=== PATIENT | female | born 1940 | race Caucasian/White ===

== ENCOUNTER 2016-10-13 09:35 | Outpatient (CLI) | payer MEDICARE, OTHER ==
[2016-10-13] MEDS ORDERED: BUFFERED LIDOCAINE 10 ML SYRINGE IU ONE (11:40)
== END 2016-10-13 09:36 | disposition home or self-care (01) ==
DX: E04.2 Nontoxic multinodular goiter (principal)

== ENCOUNTER 2017-01-24 13:16 | Outpatient (CLI) | payer MEDICARE, OTHER ==
[2017-01-24] MEDS ORDERED: ALBUTEROL NEB 2.5 MG/3 ML INH ONE (13:46)
== END 2017-01-24 13:17 | disposition home or self-care (01) ==
DX: R06.00 Dyspnea, unspecified (principal)
CPT/HCPCS: 94060; 94729; J7613

== ENCOUNTER 2017-01-26 09:35 | Outpatient (CLI) | payer MEDICARE, OTHER | END 2017-01-26 09:36 | disposition home or self-care (01) | DX: Z12.31 Encounter for screening mammogram for malignant neoplasm of breast (principal) ==

== ENCOUNTER 2017-01-26 15:51 | Outpatient (CLI) | payer MEDICARE, OTHER | END 2017-01-26 15:52 | disposition home or self-care (01) | DX: J44.9 Chronic obstructive pulmonary disease, unspecified (principal) ==

== ENCOUNTER 2017-02-01 11:58 | Day surgery (SDC) | payer MEDICARE, OTHER ==
[2017-02-01] MEDS ORDERED: LACTATED RINGERS 1,000 ML IV ONE ×3 (12:29→15:18)
[2017-02-01] MEDS ORDERED: ceFAZolin 1 GM VIAL ONE (12:45)
[2017-02-01] MEDS ORDERED: MIDAZOLAM 2 MG/2 ML VIAL IVP ONE (14:00)
[2017-02-01] MEDS ORDERED: PROPOFOL 200 MG/20 ML VIAL IVP ONE (14:00)
[2017-02-01] MEDS ORDERED: DEXAMETHASONE 4 MG/ML VIAL IVP ONE (14:00)
[2017-02-01] MEDS ORDERED: fentaNYL 100 MCG/2 ML VIAL IVP ONE (14:00)
[2017-02-01] MEDS ORDERED: ONDANSETRON 4 MG/2 ML VIAL IVP ONE (14:00)
[2017-02-01] MEDS ORDERED: LABETALOL 5 MG/1 ML 20 ML MDV IV ONE (14:00)
[2017-02-01] MEDS ORDERED: LIDOCAINE-MPF 2% 5 ML VIAL IM ONE (14:00)
[2017-02-01] MEDS ORDERED: BUPIVACAINE 0.25% PF 30 ML VIAL SUBQ ONE ×2 (14:40)
== END 2017-02-01 11:59 | disposition home or self-care (01) ==
PROC: 0LB50ZZ Excision of Right Lower Arm and Wrist Tendon, Open Approach (ICD-10-PCS; principal; 2017-02-01 13:30)
DX: M67.431 Ganglion, right wrist (principal); I10 Essential (primary) hypertension; Z82.49 Family history of ischemic heart disease and other diseases of the circulatory system; Z87.891 Personal history of nicotine dependence; Z79.82 Long term (current) use of aspirin
CPT/HCPCS: 25111; 88304; J7120

== ENCOUNTER 2017-04-02 12:54 | Outpatient (CLI) | payer MEDICARE, OTHER ==
--- NOTE | 2017-04-02 16:37 | Ultrasound Report ---
ULTRASOUND OF THE THYROID: 04/02/2017 CLINICAL HISTORY: A 76-year-old female who had a multinodular goiter with a large cyst in the lower pole of the right lobe on preceding thyroid ultrasound dated 09/11/2016. COMPARISON: 09/11/2016. TECHNIQUE: Real-time scanning was performed with medical billing representative static images obtained. FINDINGS: The right lobe of the thyroid measures 4.7 cm by 1.9 cm by 1.6 cm for a volume of 7.4 cc. The right lobe of the thyroid does demonstrate a well- circumscribed hypoechoic mass in the central aspect measuring 1.4 cm by 0.8 cm by 1.3 cm. This mass is not significantly changed in size as compared to preceding exam when it measured 1.3 cm by 0.9 cm by 1.1 cm. This lesion shows significant vascular flow within it. Although the lesion is unchanged in size, its characteristics has changed as compare to preceding exam. There are no definite cystic areas within it. There are now smaller solid hypoechoic regions in it. The present configuration places it in the intermediate suspicious category according to RAJIV criteria. Recommend this lesion undergo needle aspiration biopsy under ultrasound guidance for further evaluation. There are smaller lesions noted in the right lobe of the thyroid. There is a 0.6 cm by 0.35 cm well-circumscribed solid nodule in the superior aspect of the right lobe. There is a small complex nodule in the inferior aspect of the right lobe measuring 0.6 cm by 0.4 cm. The large cyst noted in the inferior aspect of the right lobe on preceding exam having diameters of 2.3 cm by 1.3 cm is no longer evident. There is a small hypoechoic well-circumscribed nodule measuring 0.4 cm by 0.3 cm in the medial aspect of the mid right lobe of the thyroid. There are also some smaller cystic lesions present in the right lobe of the thyroid. The left lobe of the thyroid measures 3.7 cm by 1.5 cm by 1.1 cm for a volume of 3.1 cc The left lobe of the thyroid demonstrates a primarily cystic lesion with a small solid component in it in the mid portion of the left lobe of the thyroid. It measures 0.9 cm by 0.4 cm by 0.7 cm. There is a smaller cystic lesion in the mid aspect of the left lobe of the thyroid in its medial portion measuring 0.45 cm by 0.35 cm. There are a few additional smaller cystic lesions in the left lobe. The thyroid isthmus has an AP diameter of 0.2 cm. IMPRESSION: 1. A SOLID LESION IS NOTED IN THE MID PORTION OF THE RIGHT LOBE OF THE THYROID MEASURING 1.4 CM BY 0.8 CM BY 1.3 CM. THIS LESION NO LONGER HAS ANY CYSTIC AREAS IN IT. IT IS HYPOECHOIC, WELL-CIRCUMSCRIBED AND SOLID WITH ENHANCED VASCULARITY. ITS SIZE AND CHARACTERISTICS NOW FULFILL RAJIV CRITERIA FOR NEEDLE ASPIRATION BIOPSY UNDER ULTRASOUND GUIDANCE. 2. THE LARGE CYSTIC LESION NOTED IN THE INFERIOR ASPECT OF THE RIGHT LOBE OF THE THYROID ON EXAM FROM 09/11/2016 IS NO LONGER PRESENT. IT HAS COMPLETELY RESOLVED. 3. SMALLER NODULES ARE NOTED IN EACH LOBE OF THE THYROID THAT ARE OF VERY LOW SUSPICION AND ALL MEASURE LESS THAN 1 CM IN DIAMETER. THESE SHOULD BE FOLLOWED WITH A REPEAT ULTRASOUND IN ONE YEAR FOR FURTHER EVALUATION. JOB #: [id number] EXT JOB #: [id number] OSCAR
== END 2017-04-02 12:55 | disposition home or self-care (01) ==
LOC: DI 12:54
PROVIDERS: ATTEND Internal Medicine
DX: E04.1 Nontoxic single thyroid nodule (principal)
CPT/HCPCS: 76536

== ENCOUNTER 2017-04-21 09:22 | Outpatient (CLI) | payer MEDICARE, OTHER ==
[2017-04-21 12:25] VITALS: BP 134/70
[2017-04-21] MEDS ORDERED: BUFFERED LIDOCAINE 10 ML SYRINGE IU ONE (12:31)
--- NOTE | 2017-04-21 17:16 | Ultrasound Report ---
FINE NEEDLE ASPIRATION RIGHT THYROID NODULE: 04/21/2017 CLINICAL INDICATION: Right thyroid nodule. Following obtaining informed consent, the patient's right neck was prepped and draped in the usual st erile fashion. The skin and soft tissues were anesthetized with lidocaine. Under ultrasound guidanc e, four 22-gauge fine needle aspirations were performed. Needle washings were submitted to Pathology . The patient tolerated the procedure well. No immediate complications. IMPRESSION: FINE NEEDLE ASPIRATION OF RIGHT THYROID NODULE. AWAIT PATHOLOGY REPORT. JOB #: [id number] EXT JOB #:[id number]
== END 2017-04-21 09:23 | disposition home or self-care (01) ==
LOC: DI 09:22
PROVIDERS: ATTEND Internal Medicine
DX: E04.1 Nontoxic single thyroid nodule (principal)
CPT/HCPCS: 10022; 76942; 88173; 88305

== ENCOUNTER 2018-03-17 14:42 | Outpatient (CLI) | payer MEDICARE, OTHER ==
--- NOTE | 2018-03-17 17:50 | Ultrasound Report ---
THYROID ULTRASOUND: 03/17/2018 HISTORY: Followup thyroid nodules. COMPARISON: 04/02/2017 TECHNIQUE: Real-time scanning by the rn geriatric with saved static images reviewed. FINDINGS: Right lobe of the thyroid, 4.7 x 1.4 x 2.1 cm, volume 7.2 mL. Left lobe 4.1 x 1.3 x 1.5 cm, volume 4.2 mL. Thyroid isthmus 0.3 cm. Multiple thyroid nodules as follows: 1. Right lobe dominant nodule 1.5 x 0.9 x 1.2 cm, mid portion, iso- to hypoechoic with increased vascularity. Stable size allowing for technical differences. 2. Superior right thyroid 0.5 x 0.4 x 0.5, hypoechoic stable nodule with vascularity. 3. Inferior pole right 0.6 x 0.4 x 0.4 cm cyst. 4. Cyst with small solid component lateral mid left thyroid 9 x 4 x 5 mm, stable. 5. Cyst mid medial left thyroid 7 x 5 x 5 mm. 6. Junction of the right thyroid isthmus and right lobe hypoechoic, vascular solid lesion 0.5 x 0.4 x 0.4 cm. Overall, there has been no change compared with 04/02/2017. IMPRESSION: MULTINODULAR THYROID GLAND STABLE IN APPEARANCE COMPARED WITH 04/02. TD: 03/17/2018 16:31 MTDD
== END 2018-03-17 14:43 | disposition home or self-care (01) ==
LOC: DI 14:42
PROVIDERS: ATTEND Internal Medicine
DX: E04.2 Nontoxic multinodular goiter (principal)
CPT/HCPCS: 76536

== ENCOUNTER 2018-03-17 14:44 | Outpatient (CLI) | payer MEDICARE, OTHER ==
--- NOTE | 2018-03-18 11:26 | Mammography Report ---
BILATERAL SCREENING MAMMOGRAPHY: 03/17/2018 COMPARISON: 01/26/2017, 01/16/2016, 01/22/2015, 12/07/2013, 01/28/2012, 2009. TECHNIQUE: Bilateral digital CC and MLO projections.. FINDINGS: There are scattered fibroglandular densities. In the posterior third of the right breast, at approximately the 12 and 6 o'clock positions, are faint clusters of calcifications not definitely seen on preceding studies. In the mid third probable benign ductal calcifications are present as before. In the medial aspect of the far posterior left breast, there is a faint nodular density not definitely seen on preceding studies within a stable area of asymmetric density . This area may not have been included on prior studies. Calcifications projected over the posterior left breast appear related to skin lesions. No architectural distortion, skin thickening or other change. IMPRESSION: NEEDS ADDITIONAL EVALUATION OF CALCIFICATIONS IN THE RIGHT BREAST BY MAGNIFICATION VIEWS. NEED ADDITIONAL EVALUATION OF A POSSIBLE NODULE IN THE MEDIAL LEFT BREAST BY CLEAVAGE AND TRUE LATERAL PROJECTIONS. BIRADS CATEGORY - 0. RECOMMENDATION: Needs additional evaluation bilaterally. STANDARD QUALIFYING STATEMENTS: 1. This examination was reviewed with the aid of Computer-Aided Detection (CAD) . 2. A negative or benign imaging report should not delay biopsy if clinically suspicious findings are present. Consider surgical consultation if warranted. More than 5 % of cancers are not identified by imaging. 3. Dense breasts may obscure an underlying neoplasm. TD: 03/18/2018 10:17 MTDMyra
== END 2018-03-17 14:45 | disposition home or self-care (01) ==
LOC: DI 14:44
PROVIDERS: ATTEND Internal Medicine
DX: Z12.31 Encounter for screening mammogram for malignant neoplasm of breast (principal); R92.8 Other abnormal and inconclusive findings on diagnostic imaging of breast
CPT/HCPCS: 77067

== ENCOUNTER 2018-03-31 11:13 | Outpatient (CLI) | payer MEDICARE, OTHER ==
--- NOTE | 2018-03-31 15:20 | Mammography Report ---
Procedure Date: 03/31/2018 Accession Number: [id number] / [id number] Procedure: YOANDY - Diag Special Views Dig Bilat CPT Code: FULL RESULT: EXAM: Diag Special Views Dig Bilat DATE: 03/31/2018 12:04 PM CLINICAL HISTORY: Follow-up abnormal mammogram 03/17/2018 TECHNIQUE: Right magnification, left spot compression, cleavage, and bilateral true lateral views. COMPARISON: Multiple priors. FINDINGS: There are scattered fibroglandular densities. The bilateral calcifications appear to be related to benign skin lesions. No suspicious parenchymal calcifications are seen. The asymmetric increased medial left breast density dissipates on additional views. IMPRESSION: Benign findings RECOMMENDATION: Return to routine screening in 12 months. BIRADS CATEGORY 2: Benign findings STANDARD QUALIFYING STATEMENTS: 1. This examination was reviewed with the aid of Computer-Aided Detection (CAD). 2. A negative or benign imaging report should not delay biopsy if clinically suspicious findings are present. Consider surgical consultation if warrented. More than 5% of cancers are not identified by imaging. 3. Dense breasts may obscure an underlying neoplasm.
== END 2018-03-31 11:14 | disposition home or self-care (01) ==
LOC: DI 11:13
PROVIDERS: ATTEND Internal Medicine
DX: R92.1 Mammographic calcification found on diagnostic imaging of breast (principal)
CPT/HCPCS: 77066

== ENCOUNTER 2019-07-06 11:03 | Outpatient (CLI) | payer MEDICARE, OTHER ==
--- NOTE | 2019-07-07 09:51 | Mammography Report ---
Reason: SCREENING Procedure Date: 07/06/2019 Accession Number: [id number] / [id number] Procedure: YOANDY - Screening Mammo Dig Bilat CPT Code: FULL RESULT: EXAM: Screening Mammo Dig Bilat DATE: 07/06/2019 11:44 AM CLINICAL HISTORY: Screening encounter. TECHNIQUE: (B) - Bilateral CC and MLO views were obtained. COMPARISON: 03/31/2018 through 01/16/2016. PARENCHYMAL PATTERN: (A) - The breast(s) demonstrate(s) scattered fibroglandular densities. FINDINGS: There are typically benign vascular calcifications There are no suspicious masses, calcifications, or areas of distortion. IMPRESSION: Benign findings. BI-RADS category 2. RECOMMENDATION: (ANNUAL) - Recommend routine annual screening mammography. BI-RADS CATEGORY: (2) - Benign Findings. STANDARD QUALIFYING STATEMENTS: 1. This examination was not reviewed with the aid of Computer-Aided Detection (CAD). 2. A negative or benign imaging report should not preclude biopsy if clinically suspicious findings are present. 3. Dense breasts may obscure an underlying neoplasm. 4. This examination was reviewed without the aid of 3D breast imaging (tomosynthesis).
== END 2019-07-06 11:04 | disposition home or self-care (01) ==
LOC: DI 11:03
PROVIDERS: ATTEND Internal Medicine
DX: Z12.31 Encounter for screening mammogram for malignant neoplasm of breast (principal)
CPT/HCPCS: 77067

== ENCOUNTER 2019-12-05 10:49 | Emergency (ER) | payer MEDICARE, OTHER ==
[2019-12-05 11:41] LABS: BASOPHILS % (AUTO) 0.4 %; EOSINOPHILS % (AUTO) 0.8 %; HGB - HEMOGLOBIN 13.7 g/dL (12.0-16.0); LYMPHOCYTES # (AUTO) 1.1 10^3/uL (1.5-3.5); LYMPHOCYTES % (AUTO) 22.9 %; MEAN CORPUSCULAR HEMOGLOBIN 31.5 pg (27.0-31.0); MEAN CORPUSCULAR HGB CONC 33.5 g/dL (32.0-36.0); MEAN PLATELET VOLUME 8.8 fL (7.9-10.8); MONOCYTES # (AUTO) 0.3 10^3/uL (0.0-1.0); MONOCYTES % (AUTO) 5.5 %; NEUTROPHILS # (AUTO) 3.4 10^3/uL (1.5-6.6); PLT - PLATELET COUNT 213 10^3/uL (130-450); RED BLOOD COUNT 4.35 10^6/uL (4.20-5.40); RED CELL DISTRIBUTION WIDTH 13.4 % (12.0-15.0); WHITE BLOOD COUNT 4.9 x10^3/uL (4.8-10.8)
--- NOTE | 2019-12-05 11:43 | XRAY Report ---
Reason: Chest pain Procedure Date: 12/05/2019 Accession Number: [id number] / [id number] Procedure: XR - Chest 1 View X-Ray CPT Code: 73986 Final Report FULL RESULT: EXAM: CHEST RADIOGRAPHY EXAM DATE: 12/05/2019 11:18 AM. CLINICAL HISTORY: Chest pain. COMPARISON: CHEST 2 VIEW PA/LAT 01/26/2017 10:07 AM. TECHNIQUE: 1 view. FINDINGS: Lungs/Pleura: Linear subsegmental atelectasis or scarring right CP angle. No other focal opacities evident. No pleural effusion. No pneumothorax. Mediastinum: Within exam limitations, the cardiomediastinal contour is normal. Other: None. IMPRESSION: No acute findings AP portable chest. RADIA
[2019-12-05 11:57] LABS: ALBUMIN 4.6 g/dL (3.2-5.5); ALBUMIN/GLOBULIN RATIO 1.6 (1.0-2.2); BILIRUBIN,TOTAL 0.9 mg/dL (0.2-1.0); CALCIUM 9.8 mg/dL (8.5-10.3); CREATININE 1.1 mg/dL (0.4-1.0); TOTAL PROTEIN 7.5 g/dL (6.7-8.2)
--- NOTE | 2019-12-05 12:05 | ED Physician Documentation ---
PD HPI CHEST PAIN - Stated complaint Stated Complaint: BACK/L ARM PX - Chief complaint Chief Complaint: Cardiac - History obtained from History obtained from: Patient, Family - History of Present Illness Timing - onset: How many days ago (2) Timing - onset during: Rest Timing - duration: Days (2) Timing - details: Gradual onset Pain level max: 5 Pain level now: 4 Quality: Sharp. No: Pressure, Tightness, Aching, Tearing, Dull, Stabbing, Throbbing, Indigestion, Like prior ACS, Pain Location: Other (Left upper back) Radiation: Other (States shooting pains occasionally down the left arm) Improved by: Rest, Other (Has not taken anything) Worsened by: Movement. No: Exertion, Inspiration, Eating, Palpation, Position Associated symptoms: No: Shortness of air, Diaphoresis, Nausea, Vomiting, Feeling faint / dizzy, General Weakness, Palpitations, Cough Similar symptoms before: Has not had sx before Recently seen: Not recently seen - Additional information Additional information: Patient denies any chest pain, shortness of breath, nausea, vomiting. She states it feels like a shooting pain from her back down her arm. No loss of bowel or bladder control. No fevers. No trauma. She did travel to [place] 3 weeks ago, But has not had any leg swelling or calf pain. The pain is not pleuritic. Review of Systems Ten Systems: 10 systems reviewed and negative Constitutional: denies: Fever, Chills Nose: denies: Rhinorrhea / runny nose, Congestion Throat: denies: Sore throat Cardiac: denies: Palpitations Respiratory: denies: Cough GI: denies: Vomiting, Constipation, Diarrhea : denies: Dysuria, Unable to Void, Incontinent Skin: denies: Rash Musculoskeletal: denies: Neck pain Neurologic: denies: Focal weakness, Numbness, Headache PD PAST MEDICAL HISTORY - Past Medical History Past Medical History: Yes Cardiovascular: Hypertension Respiratory: COPD, Shortness of breath Endocrine/Autoimmune: None GI: None : Incontinence, Nocturia, Frequency HEENT: None Psych: None Musculoskeletal: Osteoarthritis Derm: None - Past Surgical History General: Other Ortho: Carpal Tunnel surgery /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: Hysterectomy - Present Medications Home Medications: Ambulatory Orders Medication Instructions Recorded Confirmed Aspirin Chewable [St Issa 81 mg PO DAILY 01/29/17 08/05/17 Aspirin] Doxazosin Mesylate [Cardura Xl] 4 mg PO QPM 01/29/17 12/05/19 Irbesartan [Avapro] 300 mg PO QPM 01/29/17 12/05/19 Ascorbic Acid [Vitamin C] 500 mg PO DAILY 08/05/17 08/05/17 Cyanocobalamin (Vitamin B-12) 500 mg PO DAILY 08/05/17 08/05/17 [Vitamin B-12] Glucosa Martinez 2Kcl/Chondroitin Martinez 1 tab PO DAILY 08/05/17 08/05/17 [Glucosamine-Chondroitin Tab] Multivitamin/Iron/Folic Acid 1 tab PO DAILY 08/05/17 08/05/17 [Centrum Adults Tablet] Thiamine [Vitamin B-1] 300 mg PO DAILY 08/05/17 08/05/17 Ubidecarenone/Vitamin E Mixed 1 cap PO DAILY 08/05/17 08/05/17 [Hgw40-Dhx E 100 mg-10 Unit Sfg] Vitamin E 100 units PO DAILY 08/05/17 08/05/17 Diltiazem HCl [Cardizem LA] 300 mg PO DAILY 12/05/19 12/05/19 - Allergies Allergies/Adverse Reactions: Allergies Allergy/AdvReac Type Severity Reaction Status Date / Time methylprednisolone Allergy Rash Verified 12/05/19 10:55 [From Medrol] - Social History Does the pt smoke?: No Smoking Status: Former smoker Does the pt drink ETOH?: No Does the pt have substance abuse?: No - Immunizations Immunizations: TDAP >10years/unknown PD ED PE NORMAL - Vitals Vital signs reviewed: Yes - General General: Alert and oriented X 3, No acute distress, Well developed/nourished - HEENT HEENT: PERRL, Moist mucous membranes - Neck Neck: Supple, no meningeal sign, No bony TTP, No JVD, No bruit - Cardiac Cardiac: RRR, No murmur, Strong equal pulses - Respiratory Respiratory: No respiratory distress, Clear bilaterally - Abdomen Abdomen: Soft, Non tender, Non distended - Back Back: No spinal TTP, Other (No tenderness along the back. Full range of motion of the shoulders and back without pain.) - Derm Derm: Warm and dry - Extremities Extremities: No tenderness to palpate, Normal ROM s pain - Neuro Neuro: Alert and oriented X 3, managing manager 2-12 intact, No motor deficit, No sensory deficit, Normal speech Eye Opening: Spontaneous Motor: Obeys Commands Verbal: Oriented GCS Score: 15 - Psych Psych: Normal mood, Normal affect Results - Vitals Vitals: Vital Signs - 24 hr 12/05/19 10:55 Temperature 36.6 C Heart Rate 82 Respiratory 16 Rate Blood Pressure 169/83 H O2 Saturation 99 Oxygen O2 Source Room air - EKG (time done) 1105 Rate: Rate (enter#) (82) Rhythm: NSR Ogilvie: Normal Intervals: Normal MT QRS: Normal Ischemia: Normal ST segments - Labs Labs: Laboratory Tests 12/05/19 12/05/19 12/05/19 11:34 11:34 11:34 WBC 4.9 RBC 4.35 Hgb 13.7 Hct 40.9 MCV 94.0 MCH 31.5 H MCHC 33.5 RDW 13.4 Plt Count 213 MPV 8.8 Neut # (Auto) 3.4 Lymph # (Auto) 1.1 L [place] # (Auto) 0.3 Eos # (Auto) 0.0 Baso # (Auto) 0.0 Absolute Nucleated RBC 0.00 Nucleated RBC % 0.0 Sodium 137 Potassium 4.5 Chloride 101 Carbon Dioxide 25 Anion Gap 11.0 BUN 21 H Creatinine 1.1 H Estimated GFR (MDRD) 48 L Glucose 139 H Calcium 9.8 Total Bilirubin 0.9 AST 23 ALT 18 Alkaline Phosphatase 58 Troponin I High Sens 5.8 Total Protein 7.5 Albumin 4.6 Globulin 2.9 Albumin/Globulin Ratio 1.6 Lipase 37 - Rads (name of study) Chest x-ray Radiology: Prelim report reviewed, EMP read contemporaneously, See rad report (No acute disease) PD MEDICAL DECISION MAKING - ED course Complexity details: reviewed results, re-evaluated patient, considered differential (No ST elevation [place], no aortic dissection, no PE, no tension pneumothorax, no aortic aneurysm), d/w patient, d/w family ED course: Patient presents the emergency department with pinpoint left upper back pain. Does not appear consistent with pulmonary embolus or aortic dissection. Appears to be more likely soft tissue are neurological related. No numbness or tingling. Blood pressures are equal in the bilateral upper extremities. EKG is unremarkable. Negative high-sensitivity troponin after 2 days. No acute findings on x-ray. We will have her trial Motrin and Tylenol and see how she progresses. Patient counseled regarding signs and symptoms for which I believe and urgent re-evaluation would be necessary. Patient with good understanding of and agreement to plan and is comfortable going home at this time This document was made in part using voice recognition software. While efforts are made to proofread this document, sound alike and grammatical errors may occur. Departure - Departure Disposition: Home, Self Care Clinical Impression: Back pain Qualifiers: Back pain location: thoracic back pain Chronicity: acute Back pain laterality: left Qualified Code(s): M54.6 - Pain in thoracic spine Condition: Good Instructions: ED Neck Back Pain General Follow-Up: Theresa Cassidy MD [Primary Care Provider] - Within 1 week Comments: You can use Motrin or Tylenol as needed for pain at home. Return if you worsen. Follow-up with your doctor for further care. Your tests are normal today.
[2019-12-05 12:17] VITALS: BP 169/82
== END 2019-12-05 12:21 | disposition home or self-care (01) ==
LOC: ED 10:49
DX: M54.6 Pain in thoracic spine (principal); M79.602 Pain in left arm; I10 Essential (primary) hypertension; Z79.82 Long term (current) use of aspirin; Z87.891 Personal history of nicotine dependence
CPT/HCPCS: 36415; 71045; 80053; 83690; 84484; 85025; 93005; 99284

== ENCOUNTER 2022-12-09 14:13 | Outpatient (CLI) | payer MEDICARE, OTHER ==
--- NOTE | 2022-12-10 17:01 | Mammography Report ---
BILATERAL DIGITAL SCREENING MAMMOGRAM 3D/2D: 12/09/2022 CLINICAL: Routine screening. Comparison is made to exams dated: 07/06/2019 mammogram, 03/31/2018 mammogram, and 03/17/2018 mammogram - [facility]. Both breasts are heterogeneously dense, which may obscure small masses (category c / 51-75% glandular tissue). No significant masses, calcifications, or other findings are seen in either breast. There has been no significant interval change. IMPRESSION: NEGATIVE There is no mammographic evidence of malignancy. A 1 year screening mammogram is recommended. Based on the Tyrer Cuzick model (a risk assessment model) the patients lifetime risk is 1.9% and her 10 year risk is 0.0%. According to the ACR, ACS, and NCCN guidelines, an annual breast MRI exam alison g with mammogram is recommended if the patients lifetime risk is 20% or greater. This exam was interpreted at Station ID: [id number]. NOTE: For mammograms, a report in lay terms will be sent to the patient. Approximately 15% of breast malignancies will not be visualized mammographically. In the management of a palpable breast mass, a negative mammogram must not discourage biopsy of a clinically suspicious lesion. Electronically Signed By: Michele saeed/taya:12/09/2022 16:22:30 letter sent: No_Letter ACR BI-RADS Category 1: Negative 3341F PARENCHYMAL PATTERN: (D) - The breast(s) demonstrate(s) heterogeneously dense fibroglandular chan [place]. BI-RADS CATEGORY: (1) - 1 Mammogram [id number] 1 year screening LATERALITY: (B)
== END 2022-12-09 14:14 | disposition home or self-care (01) ==
LOC: DI 14:13
PROVIDERS: ATTEND Internal Medicine
DX: Z12.31 Encounter for screening mammogram for malignant neoplasm of breast (principal)